=== PATIENT | male | born 1960 | race Caucasian/White ===

== ENCOUNTER 2025-06-09 10:52 | Inpatient (IN) | payer SELFPAY ==
[2025-06-09] MEDS ORDERED: cefTRIAXone (ROCEPHIN) 1 GM VIAL ONE (12:20)
[2025-06-09 12:56] LABS: #Basophils 0.07 10x3/uL (0.0-0.2); #Eosinophils 0.31 10x3/uL (0.0-0.7); #Monocytes 0.56 10x3/uL (0.11-0.59); #Neutrophils 3.60 10x3/uL (1.40-6.50); %Basophils 1.1 % (0.0-1.0); %Eosinophils 5.1 % (0.0-10.0); %Lymphocytes 25.6 % (21.0-51.0); %Monocytes 9.1 % (0.0-10.0); %Neutrophils 58.8 % (42.0-75.0); Hematocrit 37.4 % (42.0-52.0); Hemoglobin 11.7 g/dL (14.0-18.0); Mean Corpuscular Hemoglobin 29.8 pg (27.0-31.0); Mean Corpuscular Volume 95.2 fL (78.0-98.0); Platelet Count 246 10x3/uL (130-400); Red Blood Cell (RBC) Count 3.93 mill/uL (4.70-6.10); White Blood Cell (WBC) Count 6.13 10x3/uL (4.8-10.8)
[2025-06-09 13:17] LABS: ALT (SGPT) Less than 7 U/L (Less than 45); AST (SGOT) 19 U/L (11-34); Albumin 2.5 g/dL (3.1-4.5); Alkaline Phosphatase 84 U/L (40-110); Anion Gap 13 mmol/L (10-20); BUN (Urea Nitrogen) 14 mg/dL (8.4-25.7); Bilirubin, Total 0.7 mg/dL (0.3-1.2); Calc. Creatinine Clearance 0 mL/min (70-130); Calcium 8.5 mg/dL (7.8-10.44); Carbon Dioxide 24 mmol/L (23-31); Chloride 104 mmol/L (98-107); Globulin 4.4 g/dL (2.4-3.5); Glucose 107 mg/dL (80-115); Potassium 4.3 mmol/L (3.5-5.1); Sodium 137 mmol/L (136-145)
[2025-06-09 17:10] VITALS: BMI 31.7
[2025-06-09] MEDS: Famotidine 20 MG TAB PO SCH (20:38)
[2025-06-09] MEDS: Melatonin 3 MG TAB PO PRN (20:39)
[2025-06-09] MEDS: Acetaminophen 325 MG TAB PO PRN (20:39)
[2025-06-10 05:49] LABS: #Basophils 0.06 10x3/uL (0.0-0.2); #Eosinophils 0.42 10x3/uL (0.0-0.7); #Monocytes 0.55 10x3/uL (0.11-0.59); #Neutrophils 3.42 10x3/uL (1.40-6.50); %Basophils 1.0 % (0.0-1.0); %Eosinophils 7.0 % (0.0-10.0); %Lymphocytes 25.3 % (21.0-51.0); %Monocytes 9.2 % (0.0-10.0); %Neutrophils 57.2 % (42.0-75.0); Hematocrit 36.3 % (42.0-52.0); Hemoglobin 11.3 g/dL (14.0-18.0); Mean Corpuscular Hemoglobin 30.1 pg (27.0-31.0); Mean Corpuscular Volume 96.8 fL (78.0-98.0); Platelet Count 222 10x3/uL (130-400); Red Blood Cell (RBC) Count 3.75 mill/uL (4.70-6.10); White Blood Cell (WBC) Count 5.98 10x3/uL (4.8-10.8)
[2025-06-10] MEDS: PNEUMOC 20-VAL CONJ-DIP CRM/PF 0.5 ML SYRINGE IM ONE (08:02)
[2025-06-10] MEDS: Enoxaparin 40 MG (0.4 mL) SYRINGE SC SCH (08:02)
[2025-06-10] MEDS: cefTRIAXone\\ROCEPHIN 2 GM in Sodium Chloride 0.9% 100 ML IVPB SCH (11:14)
[2025-06-11 06:19] LABS: #Basophils 0.06 10x3/uL (0.0-0.2); #Eosinophils 0.56 10x3/uL (0.0-0.7); #Monocytes 0.61 10x3/uL (0.11-0.59); #Neutrophils 3.50 10x3/uL (1.40-6.50); %Basophils 0.9 % (0.0-1.0); %Eosinophils 8.3 % (0.0-10.0); %Lymphocytes 29.2 % (21.0-51.0); %Monocytes 9.1 % (0.0-10.0); %Neutrophils 52.2 % (42.0-75.0); Hematocrit 35.6 % (42.0-52.0); Hemoglobin 11.1 g/dL (14.0-18.0); Mean Corpuscular Hemoglobin 30.0 pg (27.0-31.0); Mean Corpuscular Volume 96.2 fL (78.0-98.0); Platelet Count 220 10x3/uL (130-400); Red Blood Cell (RBC) Count 3.70 mill/uL (4.70-6.10); White Blood Cell (WBC) Count 6.71 10x3/uL (4.8-10.8)
[2025-06-11] MEDS: Furosemide 40 MG (4 mL) VIAL SLOW IVP SCH (09:42)
[2025-06-11] MEDS: VANCOMYCIN 2 GRAM/400 ML BAG 2 GM in Premix 1 BAG IVPB SCH (10:55)
[2025-06-11] MEDS: Electrolyte Replacement Protocol 1 EACH FS ONE (17:38)
[2025-06-11] MEDS: Vancomycin 1 GM in Premix 1 BAG IVPB SCH (23:15)
[2025-06-12] MEDS: diphenhydrAMINE 25 MG CAP PO SCH (03:43)
[2025-06-12 06:38] LABS: #Basophils 0.08 10x3/uL (0.0-0.2); #Eosinophils 0.59 10x3/uL (0.0-0.7); #Monocytes 0.54 10x3/uL (0.11-0.59); #Neutrophils 3.27 10x3/uL (1.40-6.50); %Basophils 1.2 % (0.0-1.0); %Eosinophils 8.8 % (0.0-10.0); %Lymphocytes 33.2 % (21.0-51.0); %Monocytes 8.0 % (0.0-10.0); %Neutrophils 48.5 % (42.0-75.0); Hematocrit 36.1 % (42.0-52.0); Hemoglobin 11.1 g/dL (14.0-18.0); Mean Corpuscular Hemoglobin 29.7 pg (27.0-31.0); Mean Corpuscular Volume 96.5 fL (78.0-98.0); Platelet Count 237 10x3/uL (130-400); Red Blood Cell (RBC) Count 3.74 mill/uL (4.70-6.10); White Blood Cell (WBC) Count 6.74 10x3/uL (4.8-10.8)
[2025-06-12 06:51] LABS: Vancomycin, Random 18.1 ug/mL (See Comment)
[2025-06-12 06:52] LABS: Anion Gap 17 mmol/L (10-20); BUN (Urea Nitrogen) 19 mg/dL (8.4-25.7); Calc. Creatinine Clearance 109 mL/min (70-130); Calcium 8.6 mg/dL (7.8-10.44); Carbon Dioxide 22 mmol/L (23-31); Chloride 105 mmol/L (98-107); Glucose 91 mg/dL (80-115); Potassium 4.5 mmol/L (3.5-5.1); Sodium 139 mmol/L (136-145)
[2025-06-12 06:53] LABS: CRP, High Sensitivity at Bryan 1.94 mg/dL (< or = 0.5)
[2025-06-12] MEDS: diphenhydrAMINE 25 MG CAP PO PRN (10:33)
[2025-06-13 07:43] LABS: #Basophils 0.07 10x3/uL (0.0-0.2); #Eosinophils 0.58 10x3/uL (0.0-0.7); #Monocytes 0.61 10x3/uL (0.11-0.59); #Neutrophils 3.43 10x3/uL (1.40-6.50); %Basophils 1.0 % (0.0-1.0); %Eosinophils 8.6 % (0.0-10.0); %Lymphocytes 29.7 % (21.0-51.0); %Monocytes 9.1 % (0.0-10.0); %Neutrophils 51.2 % (42.0-75.0); Hematocrit 39.3 % (42.0-52.0); Hemoglobin 12.1 g/dL (14.0-18.0); Mean Corpuscular Hemoglobin 29.9 pg (27.0-31.0); Mean Corpuscular Volume 97.0 fL (78.0-98.0); Platelet Count 256 10x3/uL (130-400); Red Blood Cell (RBC) Count 4.05 mill/uL (4.70-6.10); White Blood Cell (WBC) Count 6.71 10x3/uL (4.8-10.8)
[2025-06-13 11:47] VITALS: BP 144/87; TEMP 98.5
== END 2025-06-13 17:10 | disposition home or self-care (01) | DRG 603 ==
LOC: ERS 10:52 → T4-A 14:49 → OBSVTOIN 06-10 13:27
PROVIDERS: ADMIT Internal Medicine; ATTEND Internal Medicine
DX: L03.115 Cellulitis of right lower limb (principal); Z59.00 Homelessness unspecified; Z59.01 Sheltered homelessness; L03.116 Cellulitis of left lower limb; Z98.890 Other specified postprocedural states
CPT/HCPCS: 36415; 80048; 80053; 80202; 83880; 85025; 86141; 87081; 96365; 97139; J0696; J1650; J1940; J3373; J3375